=== PATIENT | male | born 1955 | race Caucasian/White ===

== ENCOUNTER 2016-04-27 13:20 | Observation (INO) | payer OTHER ==
[~2016-04-27] VITALS: Ht 170.2 cm; Wt 187.3 kg
[~2016-04-27 13:20] MED LIST: ALEVE220 M2 PO; ASPIR 8181 M1 PO; ASPIRIN E.C.81 M1 PO; ATARAX,VISTARIL25 MG PO; BIOTIN1000 MICRO PO; Biotin PO; CALCIUM + D 601 EACH PO; CARDIZEM CD,CA240 MG PO; CARDIZEM CD120 MG PO; CYCLOBENZAPRINE10 M1 PO; CYCLOBENZAPRINE10 MG PO; DAILY VITAMIN1 EAC8 PO; DIGOXIN250 MCG PO; ENDOCET 5-3251 EACH PO; ENDOCET 7.5-321 EACH PO; FAMOTIDINE20 MG PO; FISH OIL 1,0001 EAC7 PO; FLEXERIL10 MG PO; GABAPENTIN400 MG PO; GLUCOPHAGE1000 MG PO; HYDROCHLOROTHIA25 MG PO; HYDROCORTISON28.4 GM TP; Keflex PO; LASIX40 MG PO; LEVAMIR; LEVEMIR100 UNIT/2 SC; LINEZOLID600 MG PO; LISINOPRIL2.5 MG PO; LISINOPRIL20 MG PO; MACROBID100 MG PO; METOPROLOL SUCC25 MG PO; METOPROLOL SUCC50 MG PO; MULTIVITAMIN1 EAC1 PO; MYCOSTATIN 100,60 ML PO; NEURONTIN400 MG PO; NOVOLOG 10100 UNITS/ SC; NOVOLOG PE100 UNITS/ SC; Neurontin PO; Oyst-Cal D, Oscal W/ PO; PERCOCET 7.51 TABLET PO; PRAVACHOL80 MG PO; PRAVASTATIN SOD80 MG PO; PRINIVIL20 MG PO; PROAIR HFA8.5 GM IH; TRAMADOL HCL50 MG PO; ULTRAM50 MG PO; XARELTO20 MG PO; XARTEMIS XR 7.1 EACH PO; Zestril,Prinivil PO
[2016-04-27 14:11] LABS: HEMATOCRIT 46.2 % (38.0-50.0); MCH 31.5 PG (29.0-34.0); MCHC 33.1 G/DL (30.0-36.0); MCV 95.1 FL (86-99); MEAN PLAT.VOLUME 10.1 uM^3 (9.0-12.4); PLATELET COUNT 218 K/uL (156-360); RBC DIS.WIDTH-CV 13.3 % (11.8-14.6); RBC DIS.WIDTH-SD 44.6 % (39-53); RED BLOOD COUNT 4.86 M/uL (4.00-5.50); WHITE BLOOD COUNT 12.7 K/uL (4.1-10.2)
[2016-04-27 14:18] LABS: CHLORIDE 106 mEq/L (99-109); POTASSIUM 4.1 mEq/L (3.7-5.4); SODIUM 142 mEq/L (136-147)
[2016-04-27 14:20] LABS: GLUCOSE 216 mg/dL (70-99)
[2016-04-27 14:21] LABS: ANION GAP 11 MEQ/L (2-14)
[2016-04-27 14:24] LABS: GFR ESTIMATE (CALCULATED) > 59 mL/min/; INTER. NORMALIZED RATIO 1.2; PROTHROMBIN TIME 11.8 (9.2-11.2); PTT 27.9 (25-32)
[2016-04-27 14:25] LABS: UREA NITROGEN (BUN) 15 mg/dL (9-23)
[2016-04-27 14:31] LABS: TROP-I INTERPRETATION NEGATIVE; TROPONIN-I < 0.01 ng/mL (0.0-0.30)
[2016-04-27] MEDS ORDERED: CYCLOBENZAPRINE10 MG PO (21:21)
[2016-04-27] MEDS ORDERED: PROAIR HFA8.5 GM IH (21:21)
[2016-04-27] MEDS ORDERED: PRAVASTATIN SOD80 MG PO (21:22)
[2016-04-27] MEDS ORDERED: MEN'S MULTI-VI1 EACH PO (21:22)
[2016-04-27] MEDS ORDERED: LISINOPRIL20 MG PO (21:22)
[2016-04-27] MEDS ORDERED: OXYCODONE-ACET1 EACH PO (21:23)
[2016-04-27] MEDS ORDERED: METOPROLOL SUCC50 MG PO (21:23)
[2016-04-27] MEDS ORDERED: LASIX40 MG PO (21:24)
[2016-04-27] MEDS ORDERED: CARDIZEM CD,CA120 MG PO (21:24)
[2016-04-28 07:47] LABS: POINT-OF-CARE METER ID UU14100415
[2016-04-28 12:37] LABS: POINT-OF-CARE METER ID UU14100415
[2016-04-28 16:07] VITALS: BP 134/74
[2016-04-28 20:00] VITALS: BP 120/80
[2016-04-29] VITALS (7 sets, daily range): BP systolic 107–147; BP diastolic 66–79
[2016-04-29 08:30] LABS: POINT-OF-CARE METER ID UU14174225
[2016-04-29] MEDS ORDERED: MORPHINE SULFAT15 M1 PO (17:23)
[2016-04-29] MEDS ORDERED: XARELTO20 MG PO (17:24)
[2016-04-29 22:06] LABS: POINT-OF-CARE METER ID UU14174225
[2016-04-30 00:56] LABS: C DIFF TOXIN NEGATIVE (NEGATIVE)
[2016-04-30 00:59] LABS: PROBE CHECK PASS; SPECIMEN PROCESSING CONTROL PASS
[2016-04-30 03:23] LABS: POINT-OF-CARE METER ID UU14188625
[2016-04-30 07:41] VITALS: BP 154/71
[2016-04-30 11:13] VITALS: BP 109/74
[2016-04-30 15:10] VITALS: BP 124/75
[2016-04-30 16:08] LABS: POINT-OF-CARE METER ID UU14174225
[2016-04-30 19:27] VITALS: BP 106/67
[2016-05-01] VITALS (7 sets, daily range): BP systolic 97–121; BP diastolic 60–83
[2016-05-01 07:12] LABS: MCH 31.1 PG (29.0-34.0); MCHC 31.7 G/DL (30.0-36.0); MCV 98.1 FL (86-99); MEAN PLAT.VOLUME 10.6 uM^3 (9.0-12.4); PLATELET COUNT 223 K/uL (156-360); RBC DIS.WIDTH-CV 13.7 % (11.8-14.6); RBC DIS.WIDTH-SD 48.5 % (39-53); RED BLOOD COUNT 4.79 M/uL (4.00-5.50); WHITE BLOOD COUNT 11.8 K/uL (4.1-10.2)
[2016-05-01 07:32] LABS: ANION GAP 7 MEQ/L (2-14); CHLORIDE 99 MEQ/L (99-109); GFR ESTIMATE (CALCULATED) > 59 mL/min/; GLUCOSE 151 mg/dL (70-99); POTASSIUM 3.6 MEQ/L (3.7-5.4); SAMPLE HEMOLYSIS CHECK 0; SAMPLE ICTERIC CHECK 0; SAMPLE LIPEMIA CHECK 0; SODIUM 138 MEQ/L (136-147); UREA NITROGEN (BUN) 12 mg/dL (9-23)
[2016-05-01 08:34] LABS: MAGNESIUM 1.7 mg/dl (1.3-2.7)
[2016-05-02 00:03] VITALS: BP 117/69
[2016-05-02 04:33] VITALS: BP 116/62
[2016-05-02 07:12] LABS: HEMATOCRIT 44.1 % (38.0-50.0); MCHC 31.5 G/DL (30.0-36.0); MCV 98.2 FL (86-99); MEAN PLAT.VOLUME 10.7 uM^3 (9.0-12.4); PLATELET COUNT 228 K/uL (156-360); RBC DIS.WIDTH-CV 13.6 % (11.8-14.6); RBC DIS.WIDTH-SD 48.2 % (39-53); RED BLOOD COUNT 4.49 M/uL (4.00-5.50); WHITE BLOOD COUNT 10.7 K/uL (4.1-10.2)
[2016-05-02 07:32] VITALS: BP 104/67
[2016-05-02 07:36] LABS: ANION GAP 7 MEQ/L (2-14); CHLORIDE 99 MEQ/L (99-109); GFR ESTIMATE (CALCULATED) 55 mL/min/; GLUCOSE 160 mg/dL (70-99); SAMPLE HEMOLYSIS CHECK 0; SAMPLE ICTERIC CHECK 0; SAMPLE LIPEMIA CHECK 0; SODIUM 137 MEQ/L (136-147); UREA NITROGEN (BUN) 18 mg/dL (9-23)
[2016-05-02 07:36] LABS: POINT-OF-CARE METER ID UU14188625
[2016-05-02 07:37] LABS: POTASSIUM 4.4 MEQ/L (3.7-5.4)
[2016-05-02 11:13] VITALS: BP 103/65
[2016-05-02 11:16] LABS: POINT-OF-CARE METER ID UU14174225
[2016-05-02 15:07] VITALS: BP 123/63
[2016-05-02 16:51] LABS: POINT-OF-CARE METER ID UU14174225
[2016-05-02 20:00] VITALS: BP 143/89
[2016-05-02 22:12] LABS: POINT-OF-CARE METER ID UU14174225
[2016-05-03] VITALS: BP 152/79
[2016-05-03 04:00] VITALS: BP 148/83
[2016-05-03 07:18] VITALS: BP 124/85
[2016-05-03 07:37] LABS: POINT-OF-CARE METER ID UU14188625
[2016-05-03 11:10] VITALS: BP 118/79
[2016-05-03 11:11] LABS: POINT-OF-CARE METER ID UU14174225
[2016-05-03 14:41] LABS: POINT-OF-CARE METER ID UU14174225
[2016-05-03 15:02] VITALS: BP 113/73
[2016-05-03 15:19] LABS: POINT-OF-CARE METER ID UU14174225
[2016-05-03 16:15] LABS: POINT-OF-CARE METER ID UU14174225
[2016-05-03 20:37] VITALS: BP 141/81
[2016-05-03 22:06] LABS: POINT-OF-CARE METER ID UU14174225
[2016-05-04] VITALS (7 sets, daily range): BP systolic 107–145; BP diastolic 55–93
[2016-05-04 06:59] LABS: ANION GAP 10 MEQ/L (2-14); CHLORIDE 97 MEQ/L (99-109); GFR ESTIMATE (CALCULATED) > 59 mL/min/; GLUCOSE 171 mg/dL (70-99); POTASSIUM 4.3 MEQ/L (3.7-5.4); SAMPLE HEMOLYSIS CHECK 0; SAMPLE ICTERIC CHECK 0; SAMPLE LIPEMIA CHECK 0; SODIUM 138 MEQ/L (136-147); UREA NITROGEN (BUN) 18 mg/dL (9-23)
[2016-05-04 07:55] LABS: POINT-OF-CARE METER ID UU14174225
[2016-05-04 08:13] LABS: HEMATOCRIT 44.7 % (38.0-50.0); MCV 96.8 FL (86-99); MEAN PLAT.VOLUME 11.3 uM^3 (9.0-12.4); PLATELET COUNT 224 K/uL (156-360); RBC DIS.WIDTH-CV 13.4 % (11.8-14.6); RBC DIS.WIDTH-SD 47.1 % (39-53); RED BLOOD COUNT 4.62 M/uL (4.00-5.50); WHITE BLOOD COUNT 10.7 K/uL (4.1-10.2)
[2016-05-04 11:44] LABS: POINT-OF-CARE METER ID UU14174225
[2016-05-04 12:44] LABS: POINT-OF-CARE METER ID UU14174225
[2016-05-04 16:08] LABS: POINT-OF-CARE METER ID UU14174225
[2016-05-05 04:56] VITALS: BP 110/68
[2016-05-05 07:18] LABS: HEMATOCRIT 43.7 % (38.0-50.0); MCH 32.1 PG (29.0-34.0); MCV 97.3 FL (86-99); MEAN PLAT.VOLUME 10.8 uM^3 (9.0-12.4); PLATELET COUNT 241 K/uL (156-360); RBC DIS.WIDTH-CV 13.2 % (11.8-14.6); RBC DIS.WIDTH-SD 46.8 % (39-53); RED BLOOD COUNT 4.49 M/uL (4.00-5.50); WHITE BLOOD COUNT 9.6 K/uL (4.1-10.2)
[2016-05-05 07:41] LABS: ANION GAP 6 MEQ/L (2-14); CHLORIDE 98 MEQ/L (99-109); GFR ESTIMATE (CALCULATED) > 59 mL/min/; GLUCOSE 177 mg/dL (70-99); POTASSIUM 4.2 MEQ/L (3.7-5.4); SAMPLE HEMOLYSIS CHECK 0; SAMPLE ICTERIC CHECK 0; SAMPLE LIPEMIA CHECK 0; SODIUM 138 MEQ/L (136-147); UREA NITROGEN (BUN) 24 mg/dL (9-23)
[2016-05-05 07:42] VITALS: BP 123/64
[2016-05-05 12:34] VITALS: BP 107/54
[2016-05-05 12:54] LABS: POINT-OF-CARE METER ID UU14174225
[2016-05-05 16:49] LABS: POINT-OF-CARE METER ID UU14174225
[2016-05-05 17:14] VITALS: BP 95/53
[2016-05-05 23:55] VITALS: BP 111/69
[2016-05-06 04:46] VITALS: BP 110/68
[2016-05-06 07:55] VITALS: BP 99/61
[2016-05-06 11:12] VITALS: BP 114/68
[2016-05-06 13:26] LABS: POINT-OF-CARE METER ID UU14188625
[2016-05-06 14:59] VITALS: BP 100/54
[2016-05-06 20:00] VITALS: BP 120/74
[2016-05-07] VITALS: BP 120/72
[2016-05-07 04:06] VITALS: BP 135/67
[2016-05-07 13:24] VITALS: BP 108/60
[2016-05-07] MEDS ORDERED: OXYGEN MC (13:57)
== END 2016-05-07 16:17 ==
LOC: EME 13:20 → EDOF 20:10 → 5SOUTH 04-28 15:37
PROVIDERS: Emergency Medicine; Hospitalist; Nurse Practitioner Adult Health; Physician Assistant; Student in an Organized Health Care Education/Training Program
DX: R26.89 Other abnormalities of gait and mobility (principal); E66.2 Morbid (severe) obesity with alveolar hypoventilation; Z68.44 Body mass index [BMI] 60.0-69.9, adult; Z74.2 Need for assistance at home and no other household member able to render care; I87.8 Other specified disorders of veins; I10 Essential (primary) hypertension; E11.9 Type 2 diabetes mellitus without complications; I48.2 Chronic atrial fibrillation; I87.333 Chronic venous hypertension (idiopathic) with ulcer and inflammation of bilateral lower extremity; L97.819 Non-pressure chronic ulcer of other part of right lower leg with unspecified severity; L97.829 Non-pressure chronic ulcer of other part of left lower leg with unspecified severity; I89.0 Lymphedema, not elsewhere classified; L89.620 Pressure ulcer of left heel, unstageable; L89.623 Pressure ulcer of left heel, stage 3; E78.5 Hyperlipidemia, unspecified; I27.2 Other secondary pulmonary hypertension; L03.115 Cellulitis of right lower limb; L03.116 Cellulitis of left lower limb; Z79.4 Long term (current) use of insulin; Z82.49 Family history of ischemic heart disease and other diseases of the circulatory system; Z88.0 Allergy status to penicillin; Z88.1 Allergy status to other antibiotic agents; Z88.8 Allergy status to other drugs, medicaments and biological substances
CPT/HCPCS: 71010; 80048; 82948; 83735; 84484; 85027; 85610; 85730; 87493; 93005; 94799; 97530 GP; 99202; 99281; 99285; G0378; G8978 GP CN; G8979 GP CM; G8987 GO CM; G8988 GO CL; J1650; J1815; J2405

== ENCOUNTER 2017-10-13 13:09 | Observation (INO) | payer OTHER ==
[~2017-10-13] VITALS: Ht 170.2 cm; Wt 231.0 kg
[~2017-10-13 13:09] MED LIST changes: +ATORVASTATIN CA10 MG PO; +DILTIAZEM ER60 MG PO; +LANTUS 3 M100 UNITS1 SC; +MEN'S MULTI-VI1 EACH PO; +METOPROLOL TART25 MG PO; +MORPHINE SULFAT15 M1 PO; +NEURONTIN300 MG PO; -NEURONTIN400 MG PO; +OXYCODONE-ACET1 EACH PO; +OXYGEN MC
[2017-10-13 14:07] LABS: BASOPHIL (%) 0.5 % (0-1); BASOPHIL COUNT 0.1 K/uL (0-0.1); EOSINOPHIL (%) 2.1 % (0-5); EOSINOPHIL COUNT 0.2 K/uL (0-0.3); HEMATOCRIT 39.8 % (38.0-50.0); HEMOGLOBIN 12.8 G/DL (12.5-16.6); IMMATURE GRANULOCYTE (%) 0.8 % (0.0-0.7); LYMPHOCYTE COUNT 1.3 K/uL (1.0-2.8); MCH 28.6 PG (29.0-34.0); MCHC 32.2 G/DL (30.0-36.0); MCV 88.8 FL (86-99); MONOCYTE (%) 6.4 % (3-12); MONOCYTE COUNT 0.7 K/uL (0-0.8); NEUTROPHIL (%) 78.2 % (45-76); NEUTROPHIL COUNT 8.7 K/uL (1.8-6.4); PLATELET COUNT 213 K/uL (156-360); RBC DIS.WIDTH-CV 14.6 % (11.8-14.6); RBC DIS.WIDTH-SD 46.9 % (39-53); RED BLOOD COUNT 4.48 M/uL (4.00-5.50); WHITE BLOOD COUNT 11.2 K/uL (4.1-10.2)
[2017-10-13 14:11] LABS: INTER. NORMALIZED RATIO 1.1
[2017-10-13 14:13] LABS: PTT 25.5 SEC (25-37)
[2017-10-13 14:16] LABS: CHLORIDE 100 mEq/L (99-109); POTASSIUM 5.3 mEq/L (3.7-5.4); SODIUM 135 mEq/L (136-147)
[2017-10-13 14:17] LABS: MAGNESIUM 1.9 mg/dL (1.3-2.7)
[2017-10-13 14:18] LABS: GLUCOSE 163 mg/dL (70-99)
[2017-10-13 14:22] LABS: CREATININE 1.2 mg/dL (0.6-1.3); GFR ESTIMATE (CALCULATED) > 59 mL/min/ (58.99-99999)
[2017-10-13 14:23] LABS: UREA NITROGEN (BUN) 13 mg/dL (9-23)
[2017-10-13 14:27] LABS: TROP-I INTERPRETATION NEGATIVE; TROPONIN-I < 0.01 ng/mL (0.0-0.30)
[2017-10-13] MEDS ORDERED: LYRICA75 MG PO (16:08)
[2017-10-13] MEDS ORDERED: MODAFINIL200 MG PO (16:08)
[2017-10-13] MEDS ORDERED: ADVAIR 100/501 DISK IH (16:10)
[2017-10-13] MEDS ORDERED: TACROLIMUS30 G1 TP (16:11)
[2017-10-13] MEDS ORDERED: MAGNESIUM400 M1 PO (16:33)
[2017-10-13 18:12] VITALS: BP 143/67
[2017-10-13 20:07] LABS: TROP-I INTERPRETATION NEGATIVE; TROPONIN-I < 0.01 ng/mL (0.0-0.30)
[2017-10-14 00:29] VITALS: BP 118/74
[2017-10-14 01:19] LABS: TROP-I INTERPRETATION NEGATIVE; TROPONIN-I < 0.01 ng/mL (0.0-0.30)
[2017-10-14 04:33] VITALS: BP 172/92
[2017-10-14 07:23] LABS: TROP-I INTERPRETATION NEGATIVE; TROPONIN-I < 0.01 ng/mL (0.0-0.30)
[2017-10-14 07:36] VITALS: BP 173/84
[2017-10-14 11:16] VITALS: BP 124/60
[2017-10-14 11:28] LABS: HEMOGLOBIN A1c (GLYCOHEMOGLOB) 8.5 % (Below 5.7)
[2017-10-14 15:58] VITALS: BP 172/75
== END 2017-10-14 19:25 | disposition home or self-care (01) ==
LOC: EME 13:09 → 4SOUTH 15:22 → EDOF 15:22 → ENRESERV 15:53 → 4SOUTH 17:49
PROVIDERS: Emergency Medicine; Hospitalist
DX: R07.9 Chest pain, unspecified (principal); I48.2 Chronic atrial fibrillation; I12.9 Hypertensive chronic kidney disease with stage 1 through stage 4 chronic kidney disease, or unspecified chronic kidney disease; N18.9 Chronic kidney disease, unspecified; G47.33 Obstructive sleep apnea (adult) (pediatric); E11.22 Type 2 diabetes mellitus with diabetic chronic kidney disease; I27.20 Pulmonary hypertension, unspecified; R94.31 Abnormal electrocardiogram [ECG] [EKG]; E66.01 Morbid (severe) obesity due to excess calories; Z68.45 Body mass index [BMI] 70 or greater, adult; I87.8 Other specified disorders of veins; L97.921 Non-pressure chronic ulcer of unspecified part of left lower leg limited to breakdown of skin; L22 Diaper dermatitis; R32 Unspecified urinary incontinence; E78.5 Hyperlipidemia, unspecified; G47.419 Narcolepsy without cataplexy; M19.90 Unspecified osteoarthritis, unspecified site; I89.0 Lymphedema, not elsewhere classified; Z79.82 Long term (current) use of aspirin; Z79.01 Long term (current) use of anticoagulants; Z79.891 Long term (current) use of opiate analgesic; Z79.4 Long term (current) use of insulin; Z88.0 Allergy status to penicillin; Z88.1 Allergy status to other antibiotic agents
CPT/HCPCS: 71045; 78582; 80048; 82948; 83036; 83735; 84484; 85025; 85379; 85610; 85730; 93005; 94640; 94664; 94799; 99281; 99285; A6212; A9540; A9567; G0378; J1644; J1815